=== PATIENT | male | born 1960 | race Caucasian/White ===

== ENCOUNTER 2021-07-15 06:33 | Day surgery (SDC) | payer OTHER ==
[~2021-07-15] VITALS: Ht 182.9 cm; Wt 111.4 kg
[2021-07-15] MEDS ORDERED: ALBUTEROL SULFATE 2.5 MG/0.5 ML NEB SOLUTION NEB ONE (06:34)
[2021-07-15] MEDS ORDERED: LIDOCAINE 4% 50 ML SOLUTION TP ONE (06:34)
[2021-07-15] MEDS ORDERED: LIDOCAINE 2% 30 ML JELLY TP ONE (06:34)
[2021-07-15] MEDS ORDERED: BENZOCAINE 20% 50 MCG/SPRAY 57 GM TP ONE (06:34)
[2021-07-15] MEDS ORDERED: SODIUM CHLORIDE 0.9% 1,000 ML ONE (07:05)
[2021-07-15 07:13] LABS: COVID AG,FIA SOURCE NASOPHARYNGEAL
[2021-07-15] MEDS ORDERED: PRED10 PO (07:50)
[2021-07-15] MEDS ORDERED: LISI-894 PO (07:50)
[2021-07-15] MEDS ORDERED: MONT-35 PO (07:50)
[2021-07-15] MEDS ORDERED: FLUT16H NASAL ×2 (07:50)
[2021-07-15] MEDS ORDERED: ALBU8HFA IH (07:50)
[2021-07-15] MEDS ORDERED: FLUT1BLS10 IH (07:50)
[2021-07-15] MEDS ORDERED: ESCI-8 PO (07:50)
[2021-07-15] MEDS ORDERED: GABA-1181 PO (07:50)
[2021-07-15] MEDS ORDERED: LEVO-72 PO (07:50)
[2021-07-15] MEDS ORDERED: MIDAZOLAM HCL 5 MG/ML VIAL ONE (08:09)
[2021-07-15] MEDS ORDERED: FentaNYL CITRATE PF 100 MCG/2 ML VIAL ONE (08:09)
[2021-07-15] MEDS ORDERED: SODIUM CHLORIDE 0.9% 1,000 ML IV ONE (08:15)
[2021-07-15] MEDS ORDERED: MethylPREDNISolone SOD SUCC 125 MG/2 ML VIAL IVP ONE (09:00)
[2021-07-15] MEDS ORDERED: OXYGEN THERAPY IH SCH (20:00)
== END 2021-07-15 10:50 | disposition home or self-care (01) ==
LOC: SURGERY 06:33
PROVIDERS: ATTEND Internal Medicine Critical Care Medicine
DX: R05.3 Chronic cough (principal); R06.2 Wheezing; R04.2 Hemoptysis; R06.1 Stridor; Z79.899 Other long term (current) drug therapy
CPT/HCPCS: 31623; 31624; 71045; 71250; 87070; 87101; 87206; 87220; 87426; 88184; 88185; C9803; J2250; J2930; J3010; J7030; 87015; 88112; J7613; Z7610